=== PATIENT | male | born 1940 | race Caucasian/White ===

== ENCOUNTER 2018-08-19 15:07 | Inpatient (IN) | payer OTHER ==
[~2018-08-19] VITALS: Ht 180.3 cm; Wt 121.1 kg
--- NOTE | ~2018-08-19 | EKG ---
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
[~2018-08-19 15:07] MED LIST: ASPIRIN81 M1 PO; DAILY VITAMIN1 EAC3 PO; HYDRODIURIL25 MG PO; LEVOFLOXACIN500 MG PO; LIPITOR10 MG PO; LOPRESSOR50 M1 PO; NORVASC10 MG PO; OMEPRAZOLE20 M2 PO; PROBIOTIC250 MG PO; STOOL SOFT-STI1 EACH PO; TRIAMCINOLONE0.1% TP
[2018-08-19 15:09] VITALS: BP 131/86
[2018-08-19 16:54] LABS: BASO % 0.2 % (0.0-1.0); EOS # 0.2 10*3/uL (0.0-0.4); EOS % 4.1 % (1.0-4.0); HEMATOCRIT 45.6 % (42.0-52.0); LYMPH # 1.1 10*3/uL (1.3-4.4); LYMPH % 21.1 % (27.0-41.0); MEAN CELL VOLUME 93.8 fl (80.0-94.0); MEAN CORPUSCULAR HGB 30.9 pg (27.0-31.0); MEAN CORPUSCULAR HGB CONC 32.9 g/dl (33.0-37.0); MEAN PLATELET VOLUME 10.6 fl (9.6-12.3); MONO # 0.8 10*3/uL (0.1-1.0); MONO % 16.2 % (3.0-9.0); PLATELET COUNT AUTOMATED 242 10*3/uL (130-400); RED BLOOD COUNT 4.86 10*6/uL (4.50-5.90); RED CELL DISTRI WIDTH 14.2 % (0-14.5); WHITE BLOOD COUNT 5.1 10*3/uL (4.8-10.8)
[2018-08-19 17:04] LABS: ACT PARTIAL THROMBO TIME 25.5 SECONDS (20.8-31.5)
[2018-08-19 17:06] VITALS: BP 140/80
[2018-08-19 17:15] LABS: BILIRUBIN NEGATIVE (NEGATIVE); BLOOD TRACE-LYSED (NEGATIVE); CLARITY CLEAR (CLEAR); COLOR YELLOW (YELLOW); GLUCOSE NEGATIVE (NEGATIVE); KETONE NEGATIVE (NEGATIVE); LEUKO ESTERASE NEGATIVE (NEGATIVE); NITRITE NEGATIVE (NEGATIVE); PH 6.5 (5.0-9.0)
[2018-08-19 17:21] LABS: BACTERIA 1+; EPITHELIAL CELLS 0-2; MUCOUS 1+
[2018-08-19 17:22] VITALS: BP 123/75
[2018-08-19 17:22] LABS: WBC 0-2 wbc/hpf (0-5)
[2018-08-19 17:50] LABS: ALBUMIN 3.3 gm/dl (3.1-4.5); ALKALINE PHOSPHATASE 115 U/L (45-117); BUN 13 mg/dl (7-24); CHLORIDE 105 mmol/L (98-107); CREATININE 0.86 mg/dL (0.70-1.30); POTASSIUM 3.6 mmol/L (3.5-5.1); SGOT/AST 34 IU/L (3-35); SGPT/ALT 41 U/L (12-78); SODIUM 140 mmol/L (136-145); TOTAL PROTEIN 7.7 gm/dL (6.4-8.2)
[2018-08-19 17:54] LABS: TROPONIN I < 0.015 ng/ml (<0.045)
[2018-08-19 18:35] VITALS: BP 119/80
[2018-08-19 19:35] VITALS: BP 154/88
[2018-08-19] MEDS ORDERED: LASIX20 MG PO (22:02)
[2018-08-19] MEDS ORDERED: TAMSULOSIN HCL0.4 MG PO (22:03)
[2018-08-19] MEDS ORDERED: KAOPECTATE240 M1 PO (22:04)
[2018-08-20] VITALS: BP 106/67; BP 148/78
[2018-08-20 07:19] LABS: HEMATOCRIT 45.3 % (42.0-52.0); HEMOGLOBIN 15.3 g/dl (14.0-18.0); LYMPH # 0.7 10*3/uL (1.3-4.4); LYMPH % 13.8 % (27.0-41.0); MEAN CELL VOLUME 91.3 fl (80.0-94.0); MEAN CORPUSCULAR HGB 30.8 pg (27.0-31.0); MEAN CORPUSCULAR HGB CONC 33.8 g/dl (33.0-37.0); MEAN PLATELET VOLUME 10.4 fl (9.6-12.3); MONO # 0.2 10*3/uL (0.1-1.0); NEUT # 4.1 10*3/uL (2.3-7.9); NEUT % 82.8 % (47.0-73.0); PLATELET COUNT AUTOMATED 272 10*3/uL (130-400); RED BLOOD COUNT 4.96 10*6/uL (4.50-5.90); RED CELL DISTRI WIDTH 13.8 % (0-14.5)
[2018-08-20 07:48] LABS: BUN 13 mg/dl (7-24); CHLORIDE 103 mmol/L (98-107); CHOLESTEROL 140 mg/dL (<200); CREATININE 0.78 mg/dL (0.70-1.30); PHOSPHOROUS 2.6 mg/dL (2.5-4.9); POTASSIUM 3.4 mmol/L (3.5-5.1); SODIUM 138 mmol/L (136-145)
[2018-08-20 08:00] VITALS: BP 128/58
[2018-08-20 08:02] LABS: HDL CHOLESTEROL 46 mg/dl (40-60); LDL CHOLESTEROL 80 mg/dL (9-159); TRIGLYCERIDES 72 mg/dl (<150); VLDL CHOLESTEROL 14 mg/dL (6-40)
[2018-08-20 12:00] VITALS: BP 128/80
[2018-08-20 16:00] VITALS: BP 122/62
[2018-08-20 20:00] VITALS: BP 118/69
[2018-08-21] VITALS: BP 119/61
[2018-08-21 07:28] LABS: BASO % 0.1 % (0.0-1.0); EOS % 0.1 % (1.0-4.0); HEMATOCRIT 42.1 % (42.0-52.0); HEMOGLOBIN 13.8 g/dl (14.0-18.0); LYMPH # 1.3 10*3/uL (1.3-4.4); LYMPH % 13.7 % (27.0-41.0); MEAN CELL VOLUME 92.1 fl (80.0-94.0); MEAN CORPUSCULAR HGB 30.2 pg (27.0-31.0); MEAN CORPUSCULAR HGB CONC 32.8 g/dl (33.0-37.0); MEAN PLATELET VOLUME 10.1 fl (9.6-12.3); MONO # 0.8 10*3/uL (0.1-1.0); MONO % 7.8 % (3.0-9.0); NEUT # 7.6 10*3/uL (2.3-7.9); PLATELET COUNT AUTOMATED 234 10*3/uL (130-400); RED BLOOD COUNT 4.57 10*6/uL (4.50-5.90); RED CELL DISTRI WIDTH 14.4 % (0-14.5); WHITE BLOOD COUNT 9.8 10*3/uL (4.8-10.8)
[2018-08-21 07:57] LABS: BUN 23 mg/dl (7-24); CHLORIDE 106 mmol/L (98-107); CREATININE 0.88 mg/dL (0.70-1.30); POTASSIUM 3.5 mmol/L (3.5-5.1); SODIUM 140 mmol/L (136-145)
[2018-08-21 12:00] VITALS: BP 127/78
[2018-08-21 16:00] VITALS: BP 129/71
[2018-08-21 20:00] VITALS: BP 114/63
[2018-08-22] VITALS: BP 143/86
[2018-08-22 06:44] LABS: BASO % 0.3 % (0.0-1.0); EOS # 0.2 10*3/uL (0.0-0.4); EOS % 2.2 % (1.0-4.0); HEMATOCRIT 45.1 % (42.0-52.0); HEMOGLOBIN 14.8 g/dl (14.0-18.0); LYMPH # 1.6 10*3/uL (1.3-4.4); LYMPH % 22.3 % (27.0-41.0); MEAN CELL VOLUME 94.4 fl (80.0-94.0); MEAN CORPUSCULAR HGB CONC 32.8 g/dl (33.0-37.0); MEAN PLATELET VOLUME 10.3 fl (9.6-12.3); MONO # 0.6 10*3/uL (0.1-1.0); MONO % 8.9 % (3.0-9.0); NEUT # 4.7 10*3/uL (2.3-7.9); NEUT % 65.7 % (47.0-73.0); PLATELET COUNT AUTOMATED 257 10*3/uL (130-400); RED BLOOD COUNT 4.78 10*6/uL (4.50-5.90); RED CELL DISTRI WIDTH 14.6 % (0-14.5); WHITE BLOOD COUNT 7.2 10*3/uL (4.8-10.8)
[2018-08-22 07:08] LABS: BUN 16 mg/dl (7-24); CHLORIDE 103 mmol/L (98-107); CREATININE 0.79 mg/dL (0.70-1.30); POTASSIUM 3.5 mmol/L (3.5-5.1); SODIUM 140 mmol/L (136-145)
[2018-08-22] MEDS ORDERED: LEVAQUIN750 M1 PO (09:48)
== END 2018-08-22 10:19 | disposition home or self-care (01) | DRG 194 ==
LOC: ED 15:07 → EDHOLD 18:05 → 4E 18:05
PROVIDERS: Internal Medicine; Physician Assistant; Student in an Organized Health Care Education/Training Program; ADMIT Internal Medicine
DX: J15.9 Unspecified bacterial pneumonia (principal); E44.0 Moderate protein-calorie malnutrition; E78.5 Hyperlipidemia, unspecified; R73.9 Hyperglycemia, unspecified; R31.1 Benign essential microscopic hematuria; D64.9 Anemia, unspecified; D72.810 Lymphocytopenia; R82.71 Bacteriuria; R80.9 Proteinuria, unspecified; E66.01 Morbid (severe) obesity due to excess calories; I10 Essential (primary) hypertension; Z96.641 Presence of right artificial hip joint; E87.6 Hypokalemia; Z87.891 Personal history of nicotine dependence; Z82.49 Family history of ischemic heart disease and other diseases of the circulatory system; Z90.79 Acquired absence of other genital organ(s); Z85.46 Personal history of malignant neoplasm of prostate; Z79.82 Long term (current) use of aspirin; Z68.38 Body mass index [BMI] 38.0-38.9, adult

== ENCOUNTER 2018-12-05 14:50 | Inpatient (IN) | payer OTHER ==
[~2018-12-05] VITALS: Ht 180.3 cm; Wt 120.3 kg
[2018-12-05 14:50] VITALS: BP 133/79
[~2018-12-05 14:50] MED LIST changes: +KAOPECTATE240 M1 PO; +LASIX20 MG PO; +LEVAQUIN750 M1 PO; +TAMSULOSIN HCL0.4 MG PO
--- NOTE | 2018-12-05 15:45 | NUR ---
Patient returned to room from CT scan. No needs voiced. Will continue to closely monitor.
[2018-12-05 17:23] VITALS: BP 136/78
--- NOTE | 2018-12-05 17:45 | NUR ---
A 78, admitted to , under the services of RACHAEL Multani DO with a diagnosis of INTRACTIBLE PIN. Chief complaint is DROPPED HIS PHONE & WHEN HE BENT OVER TO PICK IT UP HE FELL & HIT HIS HEAD - DENIES LOC. . Patient arrived via stretcher from ER. Monitor applied. Initial assessment completed. Vital signs taken and recorded. RACHAEL MULTANI DO notified of admission to the unit. Orders received. See assessment for past medical history, medications and allergies. Patient and/or family oriented to unit. [facility] visitation policy reviewed. Clothing/patient valuable form completed. ABRAISION TO RT FOREHEAD, RT CHEECK, BRIDGE OF NOSE. ECCHYMOTIC TO LEFT FOREHEAD & STARTING RT EYE LID. RADHA MELO
[2018-12-05] MEDS ORDERED: VITAMIN C500 M4 PO (18:41)
--- NOTE | 2018-12-05 18:41 | NUR ---
PER PT MEDS REVIEWED AND MED REC UPDATED
[2018-12-05 20:00] VITALS: BP 119/68
--- NOTE | 2018-12-05 20:37 | NUR ---
PATIENT AMBULATED TO THE BATHROOM AND HAD BM, ON THE WAY BACK FROM THE BATHROOM, PATIENT COMPLAINS OF PAIN TO THE LEFT SHOULDER AND ARM AREA. MEDICATED WITH MORPHINE PRN PER DRS ORDERS. RN WILL MONITOR FOR EFFECTIVENESS
[2018-12-06] VITALS: BP 132/81
[2018-12-06 06:20] LABS: BASO % 0.2 % (0.0-1.0); EOS # 0.1 10*3/uL (0.0-0.4); HEMATOCRIT 42.8 % (42.0-52.0); HEMOGLOBIN 14.3 g/dl (14.0-18.0); LYMPH # 1.3 10*3/uL (1.3-4.4); LYMPH % 15.2 % (27.0-41.0); MEAN CELL VOLUME 94.7 fl (80.0-94.0); MEAN CORPUSCULAR HGB 31.6 pg (27.0-31.0); MEAN CORPUSCULAR HGB CONC 33.4 g/dl (33.0-37.0); MONO # 0.8 10*3/uL (0.1-1.0); MONO % 8.9 % (3.0-9.0); NEUT # 6.5 10*3/uL (2.3-7.9); NEUT % 74.5 % (47.0-73.0); PLATELET COUNT AUTOMATED 282 10*3/uL (130-400); RED BLOOD COUNT 4.52 10*6/uL (4.50-5.90); RED CELL DISTRI WIDTH 13.2 % (0-14.5); WHITE BLOOD COUNT 8.7 10*3/uL (4.8-10.8)
--- NOTE | 2018-12-06 06:51 | NUR ---
ANGELESAVERY Barboza [id number] Please refer to the physician's history and physical for past medical history, comorbid conditions, and allergies. Diagnosis: FRACTURE OF HUMERAL HEAD, LEFT , CLOSED Ismael Score: 20,LOW OR NO RISK WOUND DESCRIPTIONS: Wound Number: 1 Location of the wound: right cheek Type of wound: traumatic Thickness: Partial Size: 0.4cm x 0.2cm x 0.1cm Tunneling: none Undermining: none Sinus Tract: none Presence of Exudate: none Amount: None Color: Red, purple Odor: None Periwound Skin Appearance: Normal Wound edges: approximated Pain (associated with wound): none at time of assessment How does patient state this happened? pt stated he fell yesterday at 2:30pm Wound Number: 2 Location of the wound: bridge of nose Type of wound: traumatic Thickness: Partial Size: 1.7cm x 2.0cm x 0.1cm Tunneling: none Undermining: none Sinus Tract: none Presence of Exudate: Serosanguineous Amount: Light Color: Red, purple Odor: None Periwound Skin Appearance: Normal Wound edges: approximated Pain (associated with wound): none at time of assessment How does patient state this happened? pt stated he fell yesterday at 2:30pm Wound Number: 3 Location of the wound: right side of forehead Type of wound: traumatic Thickness: Partial Size: 1.8cm x 4.5cm x <0.1cm Tunneling: none Undermining: none Sinus Tract: none Presence of Exudate: Serosanguineous Amount: Light Color: Red, purple Odor: None Periwound Skin Appearance: Normal Wound edges: approximated Pain (associated with wound): none at time of assessment How does patient state this happened? pt stated he fell at home at 2:30 Surface the patient is resting on: Position Pro SKIN PREVENTION RECOMMENDATION: 1. Pressure redistribution support surface as appropriate 2. Elevate heels 3. Remove boots/TEDS every shift and reapply 4. Head of bed 30 degrees as tolerated 5. Assess nutrition and hydration 6. Manage moisture 7. Avoid the use of containment devices while in bed 8. Use absorptive products on surfaces limit layers of linens on bed 9. Turn and reposition every 1-2 hours in bed and every 1 hour in chair as tolerated 10. Weight shifts every 15 minutes while up in chair 11. Offloading with pillows or device to keep heels elevated off bed 12. Monitor skin at least every shift 13. Inspect under medical devices twice a day WOUND TREATMENT RECOMMENDATIONS: Cleanse right cheek, bridge of nose and right side of forehead with nss and apply bacitracin and leave open to air BID. Patient stated he will care for these areas at home upon discharge.
[2018-12-06 06:58] LABS: CHLORIDE 104 mmol/L (98-107); POTASSIUM 3.2 mmol/L (3.5-5.1); SODIUM 141 mmol/L (136-145)
[2018-12-06 07:30] LABS: ALBUMIN 3.4 gm/dl (3.1-4.5); ALKALINE PHOSPHATASE 92 U/L (45-117); BUN 14 mg/dl (7-24); CHOLESTEROL 129 mg/dL (<200); CREATININE 0.85 mg/dL (0.70-1.30); HDL CHOLESTEROL 48 mg/dl (40-60); LDL CHOLESTEROL 62 mg/dL (9-159); PHOSPHOROUS 3.1 mg/dL (2.5-4.9); SGOT/AST 25 IU/L (3-35); SGPT/ALT 29 U/L (12-78); TRIGLYCERIDES 97 mg/dl (<150); VLDL CHOLESTEROL 19 mg/dL (6-40)
--- NOTE | 2018-12-06 07:37 | NUR ---
PHYSICAL THERAPY Nursing screen received. PT orders also received. Thank you. Lori Simmons,PT
[2018-12-06 08:00] VITALS: BP 130/64
[2018-12-06 08:09] LABS: VITAMIN D, 25-HYDROXY 30.2 ng/mL (30-100)
--- NOTE | 2018-12-06 08:26 | NUR ---
Nursing screen completed and Occupational Therapy referral received. Thank you. Kiara Larson OTR/L
--- NOTE | 2018-12-06 08:33 | NUR ---
PHYSICAL THERAPY Awaiting Dr. Angulo consult prior to PT initiation. Thank you for this referral. Lori Simmons,PT
--- NOTE | 2018-12-06 08:59 | NUR ---
Awake and alert. Assisted w/ urinal use this AM. Abrasions noted to forehead abd rt oribital area. , Sling secure. Dr. Angulo office was notified of consult. BLE swelling w/o overt edema. Echo in progress.
--- NOTE | 2018-12-06 09:09 | NUR ---
Medicated for pain re: to FX see states scale 1/10 at this time as long as he is not moving.
--- NOTE | 2018-12-06 09:53 | NUR ---
Dr. Stone notified of wound care recommendations.
--- NOTE | 2018-12-06 11:00 | NUR ---
Marine Safety Officer in to talk to patient. Patient states lives at home with alone. There are few steps in the home. Physician: gerard apodaca Pharmacy: mail Home health services: none Patient's level of ADLs: MINIMAL ASSIST Patient has working utilities: all working DME: none Follow-up physician's appointment after d/c: will be made by hospitalist nurse scout upon discharge Does patient want to access PORTAL?: no Discharge plan discussed with patient, patient lives at home alone, he states he was getting along fine and was driving until he had a fall, discussed with patient going to a short term retirement for rehab prior to going back home, patient was inagreement with this, patient stated he would like to go to [facility], educated him that this facility is not in network with his insurance, patient was given list of facilities that was in network with his insurance and he chose [facility]. discharage inventory planner will send referral to [facility] for when patient is medically stable and has insurance authorization to go. SHANEL LAWRENCE
--- NOTE | 2018-12-06 11:07 | NUR ---
Dr. Wallace was notified of podiatry consult.
--- NOTE | 2018-12-06 11:26 | NUR ---
Pain med effective. Up in chair at present. States "I feel pretty good"
--- NOTE | 2018-12-06 11:32 | NUR ---
Dr[facility]
--- NOTE | 2018-12-06 11:43 | NUR ---
Nutritional Support Services Note: Pt was triggered for nutritional consult 2/2 wound. He's receiving Ensure TID to aid in wound healing and improve overall nutritional status. No further nutrition intervention needed at this time. Farrukh Jeong Basim CPD Student
[2018-12-06 12:00] VITALS: BP 126/71
--- NOTE | 2018-12-06 13:52 | NUR ---
Medicated fo left shoulder pain 01/07 then transported to US via w/chair.
--- NOTE | 2018-12-06 14:28 | NUR ---
Returned from US.
[2018-12-06 16:00] VITALS: BP 122/66
--- NOTE | 2018-12-06 17:42 | NUR ---
Dr. Angulo in rt hand brace ordered.
--- NOTE | 2018-12-06 18:32 | NUR ---
Wrist splint applied. bacitracin to forhead , nose and rt, eye abrasions.
--- NOTE | 2018-12-06 19:40 | NUR ---
NORCO GIVEN FOR SHOULDER/ HAND PAIN RATED A 8/10 PATIENT DESCRIBES PAIN A SHARP STABBING PAIN AND IS GRIMACING AT THIS TIME. CALL LIGHT WITHIN REACH.
[2018-12-06 20:00] VITALS: BP 91/72
--- NOTE | 2018-12-06 20:50 | NUR ---
MEDICATION EFFECTIVE. PATIENT SLEEPING COMFORTABLY IN THE BEDSIDE CHAIR. NO S/S OF DISTRESS NOTED. CALL LIGHT WITHIN REACH.
[2018-12-07] VITALS: BP 118/79
--- NOTE | 2018-12-07 06:51 | NUR ---
NORCO GIVEN FOR SHOULDER AND BACK PAIN RATED A 6/10. PAIN DESCRIBED A DULL ACHE. WILL CONTINUE TO MONITOR AND REASSESS. CALL LIGHT WITHIN REACH.
[2018-12-07 07:09] LABS: BASO % 0.1 % (0.0-1.0); EOS # 0.3 10*3/uL (0.0-0.4); EOS % 3.9 % (1.0-4.0); HEMATOCRIT 43.5 % (42.0-52.0); HEMOGLOBIN 14.3 g/dl (14.0-18.0); LYMPH # 1.9 10*3/uL (1.3-4.4); LYMPH % 24.1 % (27.0-41.0); MEAN CELL VOLUME 95.4 fl (80.0-94.0); MEAN CORPUSCULAR HGB 31.4 pg (27.0-31.0); MEAN CORPUSCULAR HGB CONC 32.9 g/dl (33.0-37.0); MEAN PLATELET VOLUME 10.9 fl (9.6-12.3); MONO # 0.9 10*3/uL (0.1-1.0); MONO % 11.5 % (3.0-9.0); NEUT # 4.7 10*3/uL (2.3-7.9); NEUT % 60.1 % (47.0-73.0); PLATELET COUNT AUTOMATED 254 10*3/uL (130-400); RED BLOOD COUNT 4.56 10*6/uL (4.50-5.90); RED CELL DISTRI WIDTH 13.4 % (0-14.5); WHITE BLOOD COUNT 7.8 10*3/uL (4.8-10.8)
--- NOTE | 2018-12-07 07:26 | NUR ---
Shift chart check completed.24 HR chart check completed.
[2018-12-07 07:38] LABS: BUN 18 mg/dl (7-24); CHLORIDE 105 mmol/L (98-107); CREATININE 0.69 mg/dL (0.70-1.30); POTASSIUM 3.4 mmol/L (3.5-5.1); SODIUM 141 mmol/L (136-145)
--- NOTE | 2018-12-07 07:59 | NUR ---
Patient requesting referral to [facility], contacted facility and faxed initial referral. Patient is unable to participate in PT/OT until evaluated by ortho. Will require precert.
[2018-12-07 08:00] VITALS: BP 120/88
--- NOTE | 2018-12-07 08:30 | NUR ---
PHYSICAL THERAPY Patient evaluated on 4, full evaluation to follow. Continue with PT as per plan of care with fall, fracture to right wrist with splint and NWB R UE and no lift/push/pull and NWB LUE humerus fracture and acute debility precautions. Will require SNF. PAtient is high complexity via chart review, tests and evaluation: 32276. Thank you for this referral. Lori Simmons,PT
--- NOTE | 2018-12-07 09:00 | NUR ---
case management visits with patient, patient will be going to [facility] for short term usp prior to going back home, waiting on insurance authorization for patient to go to [facility], case management/store planner are following
[2018-12-07 09:09] VITALS: BP 120/80
--- NOTE | 2018-12-07 09:11 | NUR ---
Occupational Therapy evaluation completed on 4 with full eval to follow. Precautions include LUE sling, right wrist brace with no lifting, pushing, pulling with right hand,fall risk, h/o falls, moderate complexity level 87212 via chart review, testing and evaluation. Recommend OT per POC and SNF to enable return home alone at independent level. Thank you for this referral. Kiara Larson OTR/L
--- NOTE | 2018-12-07 10:32 | NUR ---
PHYSICAL THERAPY Patient evaluated on 4, full evaluation to follow. Continue with PT as per plan of care with fall, fracture to right wrist with splint and NWB R UE and no lift/push/pull and NWB LUE humerus fracture and acute debility precautions. Will require SNF. PAtient is high complexity via chart review, tests and evaluation: 49300. Thank you for this referral. Lori Simmons,PT
--- NOTE | 2018-12-07 11:26 | NUR ---
Patient requested a referral to [facility] for skilled therapy. Contacted facility and faxed referral. Patient will require a precert. waiting on acceptance.
[2018-12-07 12:00] VITALS: BP 106/56
--- NOTE | 2018-12-07 13:26 | NUR ---
PHYSICAL THERAPY PT SITTING IN RECLINER UPON ARRIVAL. PT IDENTIFIED BY NAME AND . PT PERFORMED THE FOLLOWING SEATED EXERCISES 2X10 WITH VC'S AND DEMO FOR TASK TECHNIQUE. EACH EXERCISES DONE TO INCREASE STRENGTH IN BLE. LAQ, MARCH, TOE RAISE, HEEL RAISE, GLUT SET AND HIP ADD. PT HAD INCREASED PAIN IN L UE WITH TRUNK FLEX. PT REPORTED 5/10 PAIN IN L UE AND 2/10 IN R HAND AT START OF THERAPY SESSION. PT EDUCATED ON BEING NWB STATUS. PT WITH CALL LIGHT, BED TRAY AND PHONE UPON END OF TX. PT SITTING IN RECLINER AT END OF TX. PT SEEN 1:1 FOR 16 MINS THIS PM. RICARDO JOYA PTA
--- NOTE | 2018-12-07 15:17 | NUR ---
PT HAS BEEN UP IN CHAIR MOST OF THE DAY. LEFT ARM IN SLING AND RT WRIST BRACE.GOOD APPETITE. SEE ALL APPROPRIATE INTERVENTIONS.
[2018-12-07 16:00] VITALS: BP 118/68
--- NOTE | 2018-12-07 16:27 | NUR ---
NORCO FOR LEFT ARM/RT HAND DISCOMFORT.
--- NOTE | 2018-12-07 18:33 | NUR ---
EARLIER JENNIFERCO "HELPING" PAIN.
[2018-12-07 20:00] VITALS: BP 114/75
[2018-12-08] VITALS: BP 129/69
--- NOTE | 2018-12-08 03:08 | NUR ---
PATIENT C/O OF LEFT SHOULDER AND RIGHT WRIST PAIN. RATES 01/07. MEDICATED WITH IV MORPHINE. WILL CHECK EFFECTIVENESS.
[2018-12-08 08:00] VITALS: BP 114/62; BP 122/70
--- NOTE | 2018-12-08 09:00 | NUR ---
case management visits with patient, patient will be going to [facility] when medically stable and when insurance precert is obtained, no other needs at this time
--- NOTE | 2018-12-08 09:04 | NUR ---
PATIENT MEDICATED WITH NORCOFOR C/O LUE PAIN 01/07. WILL MONITOR
[2018-12-08 09:08] LABS: BASO % 0.1 % (0.0-1.0); EOS # 0.3 10*3/uL (0.0-0.4); EOS % 3.2 % (1.0-4.0); HEMOGLOBIN 14.8 g/dl (14.0-18.0); LYMPH # 1.4 10*3/uL (1.3-4.4); LYMPH % 16.1 % (27.0-41.0); MEAN CELL VOLUME 95.3 fl (80.0-94.0); MEAN CORPUSCULAR HGB 31.4 pg (27.0-31.0); MEAN CORPUSCULAR HGB CONC 32.9 g/dl (33.0-37.0); MEAN PLATELET VOLUME 10.7 fl (9.6-12.3); MONO # 0.7 10*3/uL (0.1-1.0); MONO % 8.8 % (3.0-9.0); NEUT % 71.4 % (47.0-73.0); PLATELET COUNT AUTOMATED 255 10*3/uL (130-400); RED BLOOD COUNT 4.72 10*6/uL (4.50-5.90); RED CELL DISTRI WIDTH 13.1 % (0-14.5); WHITE BLOOD COUNT 8.4 10*3/uL (4.8-10.8)
[2018-12-08 09:10] LABS: BUN 18 mg/dl (7-24); CHLORIDE 106 mmol/L (98-107); CREATININE 0.74 mg/dL (0.70-1.30); POTASSIUM 3.9 mmol/L (3.5-5.1); SODIUM 139 mmol/L (136-145)
--- NOTE | 2018-12-08 09:50 | NUR ---
OT NOTE Pt was seen this A.M. 1:1 for 24 minute OT session. Upon arrival pt was supine in bed. Pt identified by name and and had no complaints at this time. Pt presented to therapy with continuous 1L-O2 via NC which he remained on throughout entire session. Pt transferred supine to sit EOB with Hue for assist with UB. While sitting EOB pt donned pants with modA for assist with donninig over toes and pulling up from knee level once standing due to being unsteady without UE support. Multiple sit to stand transfers completed from bed level with Hue X 2 and use of standard walker for UE support. Challenged pt's static standing tolerance needed for increased I in self care tasks and functional transfers, pt was able to tolerate aprox 45 seconds at a time before sitting due to fatigue. Pt then completed sit to stand from bed level with Hue X 2 followed by stand pivot to recliner with Hue X 2 and use of standard walker. Sit to stand then completed from recliner level with maxA X 2 followed by stand pivot to bedside commode with modA X 2. Pt then completed stand pivot from bedside commode to the transport w/c with maxA X 2. Pt was left under transport Kathy supervision. Continue with rec D/C plan to SNF. SHELL Moody/Marcie
--- NOTE | 2018-12-08 09:50 | NUR ---
OT NOTE Pt was seen this A.M. 1:1 for 24 minute OT session. Upon arrival pt was sitting upright in the recliner. Pt identified by name and and had complaints of 8/10 L shoulder pain. Sit to stand completed from chair level with modA X 2. While standing pt's LUE sling was out of place. Adjusted for proper fit with and extended waist strap placed for better fit. Multiple sit to stand transfers completed from chair level with modA x 2. Challenged pt's static standing tolerance needed for increased I in self care tasks and functional transfers. Pt was able to tolerate aprox 3 minutes at a time before sitting due to fatigue. Functional mobility completed into the bathroom with CGA for safety. There he transferred on/off standard commode with modA due to low surface. Pt then returned to the recliner. Pt presented to therapy with min edema in his R hand. Educated pt on edema control followed by completing 1 X 10 pumping exercises for edema control. Pt was left sitting upright in the recliner with call light in hand, tray table in place, and phone in reach. Continue with rec D/C plan to SNF. SHELL Moody/Marcie
--- NOTE | 2018-12-08 10:04 | NUR ---
NORCO EFFECTIVE FOR LUE PAIN.
[2018-12-08 12:00] VITALS: BP 111/63
--- NOTE | 2018-12-08 14:39 | NUR ---
PHYSICAL THERAPY Patient gives informed consent for treatment. Patient was identified by name and on wrist band. Patient has complaint of pain in the L humerous OF 8. Patient has mild pain in the L wrist from fractures in the wrist also, NON WT. bearing bilateral UE. Patient ambulated 60' x 2 with no assistive device and CGA X 1 with no LOB. Patient performed TUB TEST with no use of UEs to push off chair in 35 seconds. Patient performed 2 Xs sit to stands in 30 seconds total with no use of UEs from low chair and MOD A X 1 from therapist. Patient is NON -WT BEARING ON UEs. Patient was left in sitting in bedside chair with call light within reach, chair alarm attached and tested and LEs in low position. Patient was 1;1 with this NATIONAL SALES EXECUTIVE for 18 minutes total. SHANNEN JARA NATIONAL SALES EXECUTIVE
[2018-12-08 16:00] VITALS: BP 94/59
[2018-12-08 20:00] VITALS: BP 126/79
--- NOTE | 2018-12-08 20:00 | NUR ---
MEDICATED WITH MS 2 MG SLOW IV PUSH FOR C/O RIGHT HAND PAIN & LEFT ARM PAIN RATED A 7/10.
--- NOTE | 2018-12-08 21:00 | NUR ---
RESTING IN CHAIR WITH EYES CLOSED; PAIN MEDICATION GIVEN EARLIER APPARENTLY EFFECTIVE. CALL LIGHT WITHIN REACH.
--- NOTE | 2018-12-08 22:21 | NUR ---
MEDICATED WITH NORCO FOR C/O RIGHT HAND/LEFT ARM PAIN RATED A 5/10.
[2018-12-09] VITALS: BP 97/48
--- NOTE | 2018-12-09 04:56 | NUR ---
Upon discharge recommend patient to follow up for wound care in outpatient setting continue current wound care orders at discharging facility.
[2018-12-09 08:00] VITALS: BP 118/73
--- NOTE | 2018-12-09 08:57 | NUR ---
PATIENT STATED HE HAS NOT HAD BM SINCE 12/05. PATIENT MEDICATED WITH M.O.M, WILL MONITOR
--- NOTE | 2018-12-09 08:58 | NUR ---
PATIENT MEDICATED WITH NORCO FOR LEFT ARM PAIN 01/07. WILL MONITOR
--- NOTE | 2018-12-09 09:00 | NUR ---
case management visits with patient, patient will be going to [facility] when insurance precert has been obtained, production control planner working on this
--- NOTE | 2018-12-09 09:58 | NUR ---
NORCO EFFECTIVE FOR PAIN.
--- NOTE | 2018-12-09 11:30 | NUR ---
OT NOTE Pt was seen this A.M. 1:1 for 16 minute OT session. Upon arrival pt was sitting upright in the recliner. Pt identified by name and and had complaints of 7/10 LUE pain. Pt transferred sit to stand from chair level with modA X 1 and education on proper technique for increased I. Functional mobility was completed into the bathroom with CGA for safety. There he transferred on/off standard commode with Hue and verbal prompts for correcting safety awreness with commode transfer and weight bearing through BUE. Clothing management completed with modA. Then challenged pt's static standing tolerance needed for increased I and enhanced endurance throughout self care tasks. Pt was able to tolerate aprox 5 minutes before sitting due to fatigue. Pt presented to therapy with no edema in R hand, pt was able to verbalize and demonstrate edema control exercises and techniques. Pt was left sitting upright in the recliner with call light in hand, tray table in place, and phone in reach. Continue with rec D/C plan to SNF. ANNE-MARIE Moody
[2018-12-09 12:00] VITALS: BP 123/71
--- NOTE | 2018-12-09 12:09 | NUR ---
PHYSICAL THERAPY Patient seen this am 1:1 for therapy visit and was sitting up in bedside chair upon therapist arrival. Patient voices 7/10 L shoulder pain at rest and presents with L arm sling and R wrist brace. Patient remaines NWB on B UE's, while transfering sit to stand from low chair surface, MIN A. Patient ambulates without AD, 50'x 2, CGA, demonstrating "waddling" gait pattern, decreased stide and increased fatigue. Patient also very unsteady during all 90/180 turns, needing v/c for improved step sequence while turning. Patient returned to bedside chair and remained with call light, tray table and telephone. Will continue per POC as tolerated, total treatment time 16 minutes. Kin Vargas, CARDIAC MONITOR
[2018-12-09 16:00] VITALS: BP 126/71
[2018-12-09 20:00] VITALS: BP 113/65
--- NOTE | 2018-12-09 20:33 | NUR ---
PATIENT MEDICATED WITH NORCO FOR C/O LEFT ARM PAIN 11/07. WILL MONITOR
--- NOTE | 2018-12-09 21:33 | NUR ---
PORT [place]CHARD EFFECTIVE
[2018-12-10] VITALS: BP 131/76
--- NOTE | 2018-12-10 04:42 | NUR ---
PATIENT SLEEPING UP IN CHAIR. NO SIGNS OF DISTRESS. REPSIRATIONS EASY, NON LABORED. CALL LIGHT WITHIN REACH. WILL CONTINUE TO MONITOR.
[2018-12-10 08:00] VITALS: BP 136/84
--- NOTE | 2018-12-10 09:02 | NUR ---
PATIENT MEDICATED WITH PRN NORCO AT THIS TIME PER PRN ORDER FOR COMPLAINTS OF PAIN TO LEFT SHOULDER 01/07. WILL MONITOR FOR EFFECTIVENESS.
--- NOTE | 2018-12-10 10:30 | NUR ---
PATIENT STATES THAT PAIN MEDICATION HAS BEEN EFFECTIVE. DENIES FURTHER COMPLAINTS.
[2018-12-10 12:00] VITALS: BP 119/74
--- NOTE | 2018-12-10 14:36 | NUR ---
PT MEDICATED WITH PO NORCO UPON REQUEST FOR COMPLAINTS OF PAIN IN LEFT SHOULDER/RIGHT WRIST. WILL MONITOR FOR EFFECTIVENESS.
[2018-12-10 16:00] VITALS: BP 114/62
[2018-12-10 20:00] VITALS: BP 120/68
--- NOTE | 2018-12-10 21:30 | NUR ---
MT NORCO GIVEN FOR PT COMPLAINTS OF PAIN IN THE ARM RATING IT 7/10. CALL LIGHT WITHIN REACH, WILL MONITOR
--- NOTE | 2018-12-10 23:00 | NUR ---
PRN MEDICATION APPEARS EFFECTIVE, PT SLEEPING
[2018-12-11] VITALS: BP 122/80
--- NOTE | 2018-12-11 03:44 | NUR ---
24 HR chart check completed.
--- NOTE | 2018-12-11 03:44 | NUR ---
PT SLEEPING UP IN CHAIR, NO DISTRESS NOTED
--- NOTE | 2018-12-11 05:23 | NUR ---
PRN NORCO GIVEN FOR PT COMPLAINTS OF LEFT SHOULDER AND RIGHT WRIST PAIN RATING IT 7/10. CALL LIGHT WITHIN REACH, WILL MONITOR
[2018-12-11 08:00] VITALS: BP 100/69
[2018-12-11 12:00] VITALS: BP 122/69
[2018-12-11 16:00] VITALS: BP 142/75
--- NOTE | 2018-12-11 17:25 | NUR ---
PT REQUESTED PO NORCO PER PRN ORDER FOR C/O LEFT ARM PAIN. RATES PAIN /10. WILL MONITOR EFFECTIVENESS.
--- NOTE | 2018-12-11 18:31 | NUR ---
NORCO RELIEVING PAIN PER PT. WILL CONTINUE TO MONITOR.
[2018-12-11 20:00] VITALS: BP 115/70
--- NOTE | 2018-12-11 20:11 | NUR ---
24 HR chart check completed.
[2018-12-12] VITALS: BP 117/78
--- NOTE | 2018-12-12 03:11 | NUR ---
PATIENT VOICES CONCERNS OF PAIN IN L SHOULDER 01/07. PRN MORPHINE GIVEN. WILL REASSESS.
[2018-12-12 04:00] VITALS: BP 124/68
--- NOTE | 2018-12-12 04:14 | NUR ---
PAIN MEDICATION EFFECTIVE. PATIENT SHOWING NO SIGNS OR SYMPTOMS OF PAIN. SLEEPING AT THIS TIME.
[2018-12-12 08:00] VITALS: BP 140/76
--- NOTE | 2018-12-12 08:10 | NUR ---
OT NOTE Pt was seen this A.M. 1:1 for 20 minute OT session. Upon arrival pt was sitting upright in the recliner. Pt identified by name and and had complaints of 5/10 LUE pain at rest. Pt presented to therapy with mod BLE edema and sling not positioned correct. Pt completed sit to stand from chair level with modA X 2. While standing educated pt on technique for donning and doffing gown. Pt was able to leo and doff gown with modA. Therapist then repositioned VIPIN sling for proper fit/support. A seated rest break was then given due to quick onset of fatigue. While sitting requested for pt to doff and leo B socks. Pt required maxA. Educated pt on techniques for doffing and donning LB clothing and pt was unable to complete due to weakness and edema, resulting in maxA. Sit to stand completed again from chair level with modA X 2 followed by functional mobility to the bathroom and back with SBA for safety. Pt was left sitting reclined in recliner for edema control with call light in hand, tray table in place, and phone in reach. Continue with rec D/C plan to SNF. SHELL Moody/Marcie
--- NOTE | 2018-12-12 08:23 | NUR ---
MORPHINE GIVEN FOR C/O LT SHOULDER PAONM. WILL MONITOR.
--- NOTE | 2018-12-12 09:15 | NUR ---
PHYSICAL THERAPY Patient seen this am 1:1 for therapy visit and was sitting up in bedside chair upon therapist arrival. Patient presented with increased B LE edema and admits to not elevating his feet much. Patient however reports no LE c/o pain, other than 5/10 R shoulder pain and use of R UE arm sling. Patient needed sling adjusted for improved comfort and reports decreased c/o pain 3/10, then transfers sit to stand MOD A. Patient ambulates CGA, without AD, 45'x 2 demonstrating "waddling" gait pattern, decreased stride and very cautious / unsteady balance during all turns. Patient also fatigues quickly and returned to bedside chair while remaining with call light, tray table, and telephone awaiting breakfast. Will continue per POC as tolerated, total treatment time 14 minutes. Kin Vargas, CALL CENTER TRAINER
--- NOTE | 2018-12-12 09:30 | NUR ---
MORPHINE EFFECTIVE PER PT.
[2018-12-12 12:00] VITALS: BP 131/75
--- NOTE | 2018-12-12 13:38 | NUR ---
Faxed clinical and therapy updates to [facility] for precert, still waiting for auth.
--- NOTE | 2018-12-12 14:22 | NUR ---
MORPHINE GIVEN FOR C/O LT SHOULDER PAIN. RATES 8/10 ON PAIN SCALE. WILL MONITOR.
[2018-12-12 16:00] VITALS: BP 124/50
[2018-12-12 20:00] VITALS: BP 134/73
[2018-12-13] VITALS: BP 134/73
[2018-12-13 04:00] VITALS: BP 122/72
--- NOTE | 2018-12-13 07:44 | NUR ---
AVERY REYNOSO [id number] Please refer to the physician's history and physical for past medical history, comorbid conditions, and allergies. Diagnosis: FRACTURE OF HUMERAL HEAD, LEFT , CLOSED Ismael Score: 20,LOW OR NO RISK WOUND DESCRIPTIONS: ( follow up ) Wound Number: 1 Location of the wound: right cheek Type of wound: traumatic Thickness: Partial Size: 0.4cm x 0.2cm x 0.1cm Tunneling: none Undermining: none Sinus Tract: none Presence of Exudate: none Amount: None Color: Red Odor: None Periwound Skin Appearance: Normal Wound edges: approximated Pain (associated with wound): none at time of assessment Wound Number: 2 Area is pink and blanchable at time of assessment. No open areas noted at time of assessment. No drainage noted at time of assessment. Wound Number: 3 Area is pink and blanchable at time of assessment. No open areas noted at time of assessment. No drainage noted at time of assessment Surface the patient is resting on: Position Pro SKIN PREVENTION RECOMMENDATION: 1. Pressure redistribution support surface as appropriate 2. Elevate heels 3. Remove boots/TEDS every shift and reapply 4. Head of bed 30 degrees as tolerated 5. Assess nutrition and hydration 6. Manage moisture 7. Avoid the use of containment devices while in bed 8. Use absorptive products on surfaces limit layers of linens on bed 9. Turn and reposition every 1-2 hours in bed and every 1 hour in chair as tolerated 10. Weight shifts every 15 minutes while up in chair 11. Offloading with pillows or device to keep heels elevated off bed 12. Monitor skin at least every shift 13. Inspect under medical devices twice a day WOUND TREATMENT RECOMMENDATIONS: Continue bacitracin to right cheek d/c it to bridge of nose, and right side of forehead BID leave open to air.
[2018-12-13 08:00] VITALS: BP 119/78
[2018-12-13] MEDS ORDERED: AMLODIPINE BESYL5 MG PO (08:43)
[2018-12-13] MEDS ORDERED: HYDROCODONE-AC1 EAC1 PO (08:47)
--- NOTE | 2018-12-13 10:14 | NUR ---
Qian MOSES notified of wound care recommendation.
--- NOTE | 2018-12-13 10:48 | NUR ---
Pt was seen for OT x 25 minutes with focus on edema control. Educated & demonstrated sequential pumping exercises F/B patient performing exercises with 2 cues for correct procedures. CIRCULATION SUPERVISOR performed retrograde massage for right hand to decrease edema. Call light within reach. Continue with POC. Bernie PANTOJA/Marcie
--- NOTE | 2018-12-13 11:45 | NUR ---
patient is discharged to [facility]. [facility] is going to pharmacy picking technician the patient with their ambulette and transport at 12:30. medical fee clerk and nursing notified.
[2018-12-13 12:00] VITALS: BP 107/64
--- NOTE | 2018-12-13 13:04 | NUR ---
[facility] Discharge instructions reviewed with patient/family. Patient receptive and verbalizes understanding. Follow-up care arranged. Written instructions given to patient/family. ANNY CORTEZ
--- NOTE | 2018-12-14 07:49 | NUR ---
PHYSICAL THERAPY CO-SIGN I approve of the Physical Therapy notes written above. MISHA JOHNSON
--- NOTE | 2018-12-14 08:16 | NUR ---
OCCUPATIONAL THERAPY CO-SIGN I approve of the Occupational Therapy notes written above. NEMESIO MULLIGAN OTR/Marcie
== END 2018-12-13 13:43 | disposition other institution (70) | DRG 563 ==
LOC: ED 14:50 → 4E 17:15 → EDHOLD 17:15 → 4E 17:22
PROVIDERS: Hospitalist; Internal Medicine; ADMIT Emergency Medicine
PROC: 2W3AX1Z Immobilization of Right Upper Arm using Splint (ICD-10-PCS; principal; 2018-12-05)
DX: S42.292A Other displaced fracture of upper end of left humerus, initial encounter for closed fracture (principal); E44.0 Moderate protein-calorie malnutrition; R60.0 Localized edema; R06.09 Other forms of dyspnea; K75.9 Inflammatory liver disease, unspecified; E66.01 Morbid (severe) obesity due to excess calories; S62.306A Unspecified fracture of fifth metacarpal bone, right hand, initial encounter for closed fracture; R00.1 Bradycardia, unspecified; E87.6 Hypokalemia; R73.9 Hyperglycemia, unspecified; S00.81XA Abrasion of other part of head, initial encounter; I70.202 Unspecified atherosclerosis of native arteries of extremities, left leg; Z96.641 Presence of right artificial hip joint; I10 Essential (primary) hypertension; E78.5 Hyperlipidemia, unspecified; W01.0XXA Fall on same level from slipping, tripping and stumbling without subsequent striking against object, initial encounter; Y93.89 Activity, other specified; Y92.488 Other paved roadways as the place of occurrence of the external cause; Y99.8 Other external cause status; Z87.01 Personal history of pneumonia (recurrent); Z90.79 Acquired absence of other genital organ(s); Z85.46 Personal history of malignant neoplasm of prostate; Z87.891 Personal history of nicotine dependence; Z82.49 Family history of ischemic heart disease and other diseases of the circulatory system; Z79.899 Other long term (current) drug therapy; Z79.82 Long term (current) use of aspirin; Z68.38 Body mass index [BMI] 38.0-38.9, adult

== ENCOUNTER → 2018-12-28 | Outpatient (CLI) | payer OTHER ==
[~2018-12-28] MED LIST changes: +AMLODIPINE BESYL5 MG PO; +HYDROCODONE-AC1 EAC1 PO; +VITAMIN C500 M4 PO
== END | disposition home or self-care (01) ==
LOC: ORTHO 01:19
DX: S62.91XA Unspecified fracture of right hand, initial encounter for closed fracture (principal); S42.201A Unspecified fracture of upper end of right humerus, initial encounter for closed fracture; X58.XXXA Exposure to other specified factors, initial encounter; Y93.89 Activity, other specified; Y92.89 Other specified places as the place of occurrence of the external cause; Y99.8 Other external cause status

== ENCOUNTER → 2019-02-15 | Outpatient (CLI) | payer OTHER | END | disposition home or self-care (01) | LOC: ORTHO 00:45 | DX: S42.292D Other displaced fracture of upper end of left humerus, subsequent encounter for fracture with routine healing (principal); S62.316D Displaced fracture of base of fifth metacarpal bone, right hand, subsequent encounter for fracture with routine healing; M85.812 Other specified disorders of bone density and structure, left shoulder; X58.XXXD Exposure to other specified factors, subsequent encounter ==

== ENCOUNTER → 2019-03-15 | Outpatient (CLI) | payer OTHER | END | disposition home or self-care (01) | LOC: ORTHO 01:34 | DX: S62.316D Displaced fracture of base of fifth metacarpal bone, right hand, subsequent encounter for fracture with routine healing (principal); S42.292D Other displaced fracture of upper end of left humerus, subsequent encounter for fracture with routine healing; X58.XXXD Exposure to other specified factors, subsequent encounter ==